=== PATIENT | male | born 1935 | race Caucasian/White ===

== ENCOUNTER 2017-05-05 15:00 | Inpatient (IN) | payer OTHER, MEDICARE ==
[~2017-05-05] VITALS: Ht 176.5 cm; Wt 115.7 kg
--- NOTE | 2017-05-05 15:07 | ED GENERAL ADULT ---
History of Present Illness General Chief Complaint: General Adult Stated Complaint: GEN WEAKNESS Source: patient, family Exam Limitations: no limitations Vital Signs & Intake/Output Vital Signs & Intake/Output Vital Signs Date Time Temp Pulse Resp B/P B/P Pulse O2 O2 Flow FiO2 Mean Ox Delivery Rate 05/05 1617 102.7 05/05 1609 72 20 160/66 97 Room Air 05/05 1559 97 Room Air 05/05 1513 170/72 05/05 1501 98.2 78 20 189/82 97 Room Air Allergies Coded Allergies: Penicillins (Severe, ANAPHYLAXIS 05/05/17) basil (Severe, SHUTS SYSYEM DOWN 05/05/17) bee venom protein (honey bee) (Severe, ANAPHYLAXIS 05/05/17) diphenhydramine (Severe, ANAPHYLAXIS 05/05/17) metoprolol (From TOPROL XL) (Severe, BRADYCARDIA 05/05/17) amlodipine (From NORVASC) (Intermediate, FACE FLUSHED 05/05/17) losartan (From COZAAR) (Intermediate, BRADYCARDIA 05/05/17) hydrochlorothiazide (From HYZAAR) (Mild, NONE 05/05/17) REPORTS THAT IT DOESNT WORK ANYMORE Uncoded Allergies: BEE STINGS (Severe, ANAPHYLAXIS 05/05/17) CLASS: 48:00 - ANTITUSS EXPECTORANT MUCO LYTI () CLASS: 4:00 - ANTIHISTAMINE DRUGS () Reconcile Medications Chlorthalidone (Unknown Strength) TABLET (Unknown Dose) HEART HEALTH ( Reported) Clopidogrel Bisulfate (Plavix) 75 MG TABLET 1 TAB PO DAILY BLOOD THINNER ( Reported) Glipizide (Glipizide ER) 2.5 MG TAB.ER.24 1 TAB PO DAILY DIABETES (Reported) Irbesartan (Avapro) (Unknown Strength) TABLET (Unknown Dose) HEART HEALTH ( Reported) Metformin HCl (Metformin HCl ER) (Unknown Strength) TAB.ER.24 (Unknown Dose) PO DAILY DIABETES (Reported) Triage Nurses Notes Reviewed? yes HPI: Patient presents with increasing weakness over the past few weeks however it acutely got worse today where he could not even transfer from his bed to a chair. The weakness is diffuse. He does not notice it on 1 side versus the other. Patient recently changed his blood pressure medication to Norvasc. His stop the Norvasc this morning and put him back on his original blood pressure medication. Patient is due to have a cardiac pacemaker placed next month. Patient denies any chest pain or shortness of breath. There is no orthopnea. Positive anorexia but no nausea or vomiting. No fevers or chills. No coughing. Past History Travel History Traveled to [place] past 21 day No Medical History Any Pertinent Medical History? see below for history Cardiovascular: hypertension, hyperlipidemia Surgical History Surgical History: non-contributory Psychosocial History Tobacco Use: Never used ETOH Use: denies use Illicit Drug Use: denies illicit drug use Family History Hx Contributory? No Review of Systems Review of Systems Constitutional: Reports: see HPI, weakness. EENTM: Reports: no symptoms. Respiratory: Reports: no symptoms. Cardiovascular: Reports: no symptoms. GI: Reports: no symptoms. Genitourinary: Reports: no symptoms. Musculoskeletal: Reports: no symptoms. Skin: Reports: no symptoms. Neurological/Psychological: Reports: no symptoms. Hematologic/Endocrine: Reports: no symptoms. Immunologic/Allergic: Reports: no symptoms. All Other Systems: Reviewed and Negative Physical Exam Physical Exam General Appearance: well developed/nourished, alert, awake, anxious, moderate distress Head: atraumatic, normal appearance Eyes: Bilateral: PERRL, EOMI. Ears, Nose, Throat: normal pharynx, normal ENT inspection, hearing grossly normal Neck: normal inspection, supple, full range of motion Respiratory: normal breath sounds, chest non-tender, no respiratory distress, lungs clear Cardiovascular: regular rate/rhythm, normal peripheral pulses Gastrointestinal: normal bowel sounds, soft, non-tender, no organomegaly Back: normal inspection, normal range of motion Extremities: normal capillary refill, pedal edema Neurologic/Psych: no motor/sensory deficits, awake, alert, oriented x 3, normal mood/affect Skin: intact, normal color, warm/dry Lymphatic: no anterior cervical jose enrique Core Measures ACS in differential dx? No CVA/TIA Diagnosis: No Severe Sepsis Present: No Septic Shock Present: No Progress Differential Diagnoses I considered the following diagnoses in my evaluation of the patient: [AMI, ELECTROLYTE ABNORMALITY, UTI] Plan of Care: Orders Procedure Date/time Status Admit to inpatient 05/[address] CHEST W IV CONTRAST 05/05 1630 Active BLOOD CULTURE 05/05 1618 Active Telemetry/Core Placer 05/05 1507 Active URINALYSIS 05/05 1507 Active TROPONIN LEVEL 05/05 1507 Complete COMPREHENSIVE METABOLIC PANEL 05/05 1507 Complete CBC WITHOUT DIFFERENTIAL 05/05 1507 Complete EKG 05/05 1503 Active Current Medications Sig/Thomas Start time Last Medication Dose Stop Time Status Admin Acetaminophen 1,000 MG ONCE ONE 05/05 1630 AC (Ofirmev) 05/05 1644 N/A 1 UNIT (No Carrier) Clindamycin 600 MG ONCE ONE 05/05 1630 UNVr (Cleocin) 05/05 1659 Dextrose/Water 50 ML (D5W) Laboratory Tests 05/05/17 1515: Anion Gap 10, Estimated GFR 49 L, BUN/Creatinine Ratio 17.1, Glucose 203 H, Calcium 8.7, Total Bilirubin 1.8 H, AST 21, ALT 27, Alkaline Phosphatase 59, Troponin I 0.02, Total Protein 5.6 L, Albumin 3.7, Globulin 1.9, Albumin/ Globulin Ratio 1.9, CBC w Diff NO MAN DIFF REQ, RBC 3.35 L, MCV 98.3 H, MCH 33.1 H, RDW 18.2 H, MPV 8.0, Gran % 75.4 H, Lymphocytes % 11.2 L, Monocytes % 12.3 H, Eosinophils % 0.9, Basophils % 0.2, Absolute Granulocytes 7.3 H, Absolute Lymphocytes 1.1 L, Absolute Monocytes 1.2 H, Absolute Eosinophils 0.1 , Absolute Basophils 0, PUBS MCHC 33.7 Microbiology 05/05 1618 BLOOD: Blood Culture - ORD 05/05 161 BLOOD: Blood Culture - ORD Diagnostic Imaging: Viewed by Me: Radiology Read. Discussed w/RAD: Radiology Read. CXR Impression: PATIENT: MARTINEZ SUMNER III PRESENT AGE: 81 PATIENT ACCOUNT NO: [id number] : 37 LOCATION: [facility] ORDERING PHYSICIAN: RICK ROJAS MD SERVICE DATE: 05/05/17 EXAM TYPE: RAD - XRY-PORTABLE CHEST XRAY EXAMINATION: XR PORTABLE CHEST CLINICAL INFORMATION: Pneumonia, shortness of breath COMPARISON: 03/22/2014 CT scan TECHNIQUE: Portable frontal view of the chest was obtained. FINDINGS: There is opacity in the lower half of the left hemithorax with obscuration of the left cardiac and left diaphragmatic border, representing lingular and left lower lobe pathology. There is also opacity in the lateral aspect of the right hemithorax, adjacent to the right third and fourth rib. The right costophrenic angle is clear. No pneumothorax. IMPRESSION: Left lower lobe and lingular opacity with obscuration of the left cardiac and left diaphragmatic border and left costophrenic angle. Right upper lobe pulmonary opacity. Consider further chest CT scan evaluation if clinically indicated. DICTATED BY: REINA ORDONEZ MD DATE/TIME DICTATED:1548 DOCTOR OF DENTAL SURGERY:ARGELIA DATE/TIME TRANSCRIBED:05/05/171548 CONFIDENTIAL, DO NOT COPY WITHOUT APPROPRIATE AUTHORIZATION. <Electronically signed in Other Vendor System> SIGNED BY: REINA ORDONEZ MD 05/05/17 0365 Initial ED EKG: NSR, nonspecific ST T wave chg, NO OLD TO COMPARE Departure Departure Disposition: HOME OR SELF CARE Condition: Stable Clinical Impression Primary Impression: Pneumonia Referrals: IDANIA CONROY,Nicole XIAO (PCP/Family) Departure Forms: Customer Survey General Discharge Information Admission Note Spoke With: JOCELIN CONROY,RAMY Whyte Documentation of Exam: Documentation of any treatments & extenuating circumstances including Concerns Regarding Discharge (functional status, medication knowledge or non-compliance, living conditions, etc.) that warrant an admission rather than observation: [IV antibiotics, IV fluids, follow-up CT scan PT evaluation. Patient required an assist of 3 to stand from the wheelchair and pivot in a cherokee to the bed.] Critical Care Note Critical Care Note Critical Care Time: non-applicable
--- NOTE | 2017-05-05 15:18 | NUR ---
LABS SENT (BLUE,SST,LAV,OTERO)
[2017-05-05 15:30] LABS: ABSOLUTE BASOPHIL COUNT 0 /CUMM (0.0-0.2); ABSOLUTE EOSINOPHIL COUNT 0.1 /CUMM (0.0-0.7); ABSOLUTE GRANULOCYTE CT 7.3 /CUMM (1.4-6.5); ABSOLUTE LYMPH COUNT 1.1 /CUMM (1.2-3.4); ABSOLUTE MONOCYTE COUNT 1.2 /CUMM (0.10-0.60); BASOPHIL % 0.2 % (0.0-2.0); EOSINOPHIL % 0.9 % (0-5); GRANULOCYTE % 75.4 % (42.2-75.2); HEMATOCRIT 32.9 % (42-52); MEAN CORPUSCULAR HGB 33.1 PG (27.0-31.0); MEAN CORPUSCULAR HGB CONC 33.7 G/DL (33.0-37.0); MEAN CORPUSCULAR VOLUME 98.3 FL (80.0-94.0); PLATELET COUNT 146 /CUMM (130-400); RBC DISTRIBUTION WIDTH 18.2 % (11.5-14.5); RED BLOOD CELL CT 3.35 /CUMM (4.70-6.10); WHITE BLOOD CELL COUNT 9.7 /CUMM (4.8-10.8)
--- NOTE | 2017-05-05 15:33 | NUR ---
PT ARRIVED BY CAR WITH C/O WEAKNESS. REPORTS HAVING TO GET A PACEMAKER PLACED IN A FEW WEEKS FOR BRADYCARDIA. PT A+OX3, MAEX4, UNSTEADY ON FEET WITH TRANSFERRING FROM WC TO BED, ASSIST X2. PT PLACED ON MONITOR, DR ROJAS TO ROOM FOR EVAL. SKIN COLOR NORMAL. FACE A LITTLE FLUSHED, RESP NORMAL.
[2017-05-05] MEDS ORDERED: AVAPRO75 M1 (15:49)
[2017-05-05] MEDS ORDERED: PLAVIX75 M1 PO (15:54)
--- NOTE | 2017-05-05 15:56 | RADIOLOGY REPORT ---
EXAMINATION: XR PORTABLE CHEST CLINICAL INFORMATION: Pneumonia, shortness of breath COMPARISON: 03/22/2014 CT scan TECHNIQUE: Portable frontal view of the chest was obtained. FINDINGS: There is opacity in the lower half of the left hemithorax with obscuration of the left cardiac and left diaphragmatic border, representing lingular and left lower lobe pathology. There is also opacity in the lateral aspect of the right hemithorax, adjacent to the right third and fourth rib. The right costophrenic angle is clear. No pneumothorax. IMPRESSION: Left lower lobe and lingular opacity with obscuration of the left cardiac and left diaphragmatic border and left costophrenic angle. Right upper lobe pulmonary opacity. Consider further chest CT scan evaluation if clinically indicated.
[2017-05-05] MEDS ORDERED: METFORMIN HCL500 M2 PO (15:58)
[2017-05-05] MEDS ORDERED: GLIPIZIDE ER2.5 M1 PO (15:58)
--- NOTE | 2017-05-05 16:46 | NUR ---
URINE TRIO SENT
--- NOTE | 2017-05-05 16:47 | NUR ---
BLOOD CULTURE #2 SENT
--- NOTE | 2017-05-05 16:50 | History & Physical ---
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 Pt states he has had progressive weakness over the past week. Pt states he believes the weakness was caused by a new medication that was started (Norvasc) over 1 month ago. The medication was recently stopped by sap sd analyst. Pt's family state that he has had decreased appetite over the past week. Pt denies dizziness, lightheadedness, chest pain or SOB. Pt states he does not walk much because of leg pain. Pt denies lower extremity swelling or orthopnea. Pt is diabetic on metformin and glypizide. Pt checks is blood glucose at home, range has been: 115-130. Denies hypoglycemic episodes. Pt is being followed by Dr. Reyes (floor refinisher). Pt states he lives in [place] for part of the year and comes to [place] for a few months to see his physicians. Pt states he does not spend much time outdoors and has not had tick bites or other insect bites. Pt denies headache, visual changes , n/v, fever/chills. Denies abdominal pain, diarrhea/constipation, or dysuria. Pt is currently seeing Dr. York (cardiology) and Dr. Khan ( trolley car operator) who is placing pacemaker. Pt is seen by Dr. Sousa ( pulmonology) and was seen by Dr. Turner (vascular) for stent placement. Allergies/Medications Allergies: Coded Allergies: Penicillins (Severe, ANAPHYLAXIS 05/05/17) basil (Severe, SHUTS SYSYEM DOWN 05/05/17) bee venom protein (honey bee) (Severe, ANAPHYLAXIS 05/05/17) diphenhydramine (Severe, ANAPHYLAXIS 05/05/17) metoprolol (From TOPROL XL) (Severe, BRADYCARDIA 05/05/17) amlodipine (From NORVASC) (Intermediate, FACE FLUSHED 05/05/17) losartan (From COZAAR) (Intermediate, BRADYCARDIA 05/05/17) hydrochlorothiazide (From HYZAAR) (Mild, NONE 05/05/17) REPORTS THAT IT DOESNT WORK ANYMORE Uncoded Allergies: BEE STINGS (Severe, ANAPHYLAXIS 05/05/17) CLASS: 48:00 - ANTITUSS EXPECTORANT MUCO LYTI () CLASS: 4:00 - ANTIHISTAMINE DRUGS () Home Med list Aspirin (Aspirin*) 81 MG TAB.CHEW 1 TAB PO DAILY HEART (Reported) Chlorthalidone 25 MG TABLET 0.5 TAB PO DAILY HYPERTENSION (Reported) Clopidogrel Bisulfate (Plavix) 75 MG TABLET 1 TAB PO DAILY BLOOD THINNER ( Reported) Famotidine 20 MG TABLET 20 MG PO DAILY gerd . Glimepiride 1 MG TABLET 1 TAB PO SEE ADMIN CRITERIA DIABETES (Reported) TAKES 2 AND 1/2 PILL AM TAKES 2 AND 1/2 PILL BEDTIME Irbesartan 300 MG TABLET 1 TAB PO DAILY HYPERTENSION (Reported) Levofloxacin (Levaquin) 500 MG TABLET 500 MG PO Q24H pneumonia . Metformin HCl 500 MG TABLET 2 TAB PO AT BEDTIME DM (Reported) Metformin HCl 500 MG TABLET 500 MG PO DAILY DM (Reported) Past History Travel History Traveled to [place] past 21 day No Medical History Neurological: CVA Cardiovascular: CAD, hypertension, myocardial infarction Respiratory: obstructive sleep apnea Musculoskeletal: RESTLESS LEG SYNDROME Endocrine: PRE DIABETIC Surgical History Surgical History: non-contributory Past Family/Social History Psychosocial History Smoking Status: Former Smoker (stopped 30 years ago) ETOH Use: denies use Illicit Drug Use: denies illicit drug use Review of Systems Review of Systems Constitutional: Reports: see HPI, fever (temp: 100), weakness. Denies: chills, unexplained weight loss. Cardiovascular: Denies: chest pain, edema, orthopena, syncope. Respiratory: Denies: cough, orthopnea. GI: Denies: abdominal pain, nausea, vomiting. Musculoskeletal: Denies: no symptoms. Skin: Reports: erythema (L buttock). Exam & Diagnostic Data Last 24 Hrs of Vital Signs/I&O Vital Signs Date Time Temp Pulse Resp B/P B/P Pulse O2 O2 Flow FiO2 Mean Ox Delivery Rate 05/05 2007 Room Air 05/05 1955 99.1 55 18 142/60 96 Room Air 05/05 1741 100.2 05/05 1739 100.3 05/05 1642 102.7 05/05 1617 102.7 05/05 1609 72 20 160/66 97 Room Air 05/05 1559 97 Room Air 05/05 1513 170/72 07 1501 98.2 78 20 189/82 97 Room Air Intake & Output 05/05 1600 05/05 0800 07 0000 Intake Total 1000 Output Total Balance 1000 Intake, IV 1000 Patient 260 lb Weight Weight Estimated Measurement Method Physical Exam General Appearance Alert, Cooperative, No Acute Distress Skin No Breakdown, No Significant Lesion, mild erythema on left buttock HEENT Atraumatic, dry mucosal membranes Neck No JVD Cardiovascular Regular Rate, Normal S1, Normal S2 Lungs Clear to Auscultation, Normal Air Movement Abdomen Normal Bowel Sounds, Soft, No Tenderness Neurological Normal Speech Assessment/Plan Assessment: 81 y/o male with PMH of aNolafib (20 years prior), TN, CAD s/p 5 stents, aortioiliac stent, tachybrady arythmia scheduled for June 04 2017, stroke with no permanent neurologic complications, BINU on CPAP and HTN presents to ED with weakness. In ED: - patient was given IVF bolus, clindamycin 600mg IV and IV tylenol - EKG: NSR, HR: 84, normal axis, no ST changes, QTc: 418, KY: 188. - CXR: Left lower lobe and lingular opacity with obscuration of the left cardiac and left diaphragmatic border and left costophrenic angle. Right upper lobe pulmonary opacity - CT of Chest: RUL airspace disease - possible pneumonia, mild cardiomegaly - Pt's Tmax: 102.7 in the ED. Pt had fingerstick glucose Pt admitted to tele for management of the followin. Generalized weakness possibly 2/2 pneumonia, anemia, dehydration, medications. Pt's generalized weakness can most likely be attributed to pneumonia. Pt has been febrile in the ED with both CXR and CT of Chest showing right upper lobe airspace disease indicative of pneumonia. Althought patient has multiple cardiac risk factors including tachybrady arrhythmias pt denied syncopal episodes, chest pain or palpitations and a cardiac etiology for pt's current weakness is less likely. However telemetry is warranted due to pt's tachybrady arrhythmia with impending pacemaker placement on June 04, 2017. Pt is prediabetic and is on an oral hypoglycemia (glipizide) however has been monitoring BG at home (115 to 130) and today in the ED was 217 so hypoglycemia can be r/o as possible etiology. Pt has had multiple strokes in the past however no permanent neurological sequelae and this current admission revealed no focal neurologic findings therefore neurologic causes are also less likely. Pt has anemia (H/H: 11.1/32) which could contribute to progressive weaknes. Pt also was placed on Norvasc prior to the start of symptoms, and which from the literature has shown to cause weakness but is associated with musculoskeletal pains of which the patient denies. However, pt has stopped the medication a few days priors to admission. - started on levofloxacin 500mg q48 hours (renally adjusted) - f/u lower respiratory cultures - f/u urinary antigen for strep pneumo/legionella - f/u blood cultures - physical therapy evaluation pending - maintained on fall precautions 2. Macrocytic Anemia: Pt has a low H/H and high MCV. Anemia is most likely secondary to poor oral intake possible folate deficiency. B12 deficiency less likely due to lack of neurologic symptoms. Alcohol related anemia unlikely as pt states he has had 2 drinks in past 5 years. Hypothyroid related anemia is possible as hypothyroidism can also cause generalized weakness however pt does not appear to have any other signs/symptoms. - repeat CBC in AM - consider TSH/T4 3. Tachybradycardia arrhythmia Patient is scheduled to get a pacemaker on June 04, 2017 4. BINU on CPAP - Continuel CPAP at night 5. DM On glimepiride and metformin - hold oral meds - start on insulin SS 6. Hypertension Home meds: irbesartan, chlorothalidone and Norvasc (which he stopped due to weakness/flushing) 7. CAD s/p 5 stents, s/p aortoiliac stent, multiple strokes in the past - will continue home meds: aspirin 81 mg daily and plavix 75 mg daily - remain off beta gaurav for now due to bradycardia DVT prophylaxis: Heparin SQ Diet: DASH, regular consistency Code: DNR/DNI As Ranked By This Provider Problem List: 1. Pneumonia Core Measures/Miscellaneous Acute Coronary Syndrome ACS Diagnosis: No Cerebrovascular Accident CVA/TIA Diagnosis: No Congestive Heart Failure CHF Diagnosis: No VTE (View Protocol) VTE Risk Factors: Age > 40, CHF or Resp failure, Obesity No [facility] VTE prophylaxis d/t: No contraindications No VTE Pharm Prophylaxis d/t: No contraindications VTE Diagnosis: No VTE Type: NONE VTE Confirmed by (Test): NONE Sepsis (View Protocol) Severe Sepsis Present: No Septic Shock Septic Shock Present: No Miscellaneous Documentation Attending Case Discussed With: RAMY MONREAL MD Primary Care Physician: Nicole EMERSON MD Patient sees these Specialists Dr. York (cardiology) Dr. Khan (trolley car operator) placing pacemaker in June. Dr. Sousa (pulmonology) Dr. Turner (vascular) Dr. Reyes (floor refinisher) Level of Patient Care: Telemetry LIZETT GARVEY 05/05/17 1650: Resident Review Statement Resident Statement: examined this patient, discussed with automotive internet sales consultant, agreed with automotive internet sales consultant, discussed with family, reviewed EMR data (avail), discussed with nursing , discussed with case mgmt, reviewed images, amended to note Other Findings: 81-year-old male with a past medical history of xyc-arogcvz-kjroghcdo diabetes mellitus, tachybradyarrythmia with plan for PM in Jun 2017, CAD s/p PCIX5 on DAPT, PVD s/p aortoiliac stent in 2014, stroke in 1998 (with minimal residual left sided neuro defcit), BINU on nocturnal CPAP, hypertension, presented to the ER with chief complaints of increasing weakness and difficulty ambulating. Of note patient lives in [place] and visits [place] every 4 months or so. According to him there was a recent change in his medications by Dr. York and he was started on Norvasc about. He states since then he has not been feeling well and has been feeling very weak. He endorses generalized weakness going on for the past 1 month now. He said that the weakness progressed to the point where he was unable to ambulate this morning which is why he presented to the ER. He also endorses fever to 100F last night. Denies any cough, history of tick bite, weight loss, urinary complaints. Denies any orthopnea or PND, shortness of breath, chest discomfort, abdominal pain, nausea, vomiting. He does however endorses a rash on his left buttock area. Of note he is not an insulin for his diabetes and his blood sugars for the most part range between 1: 15 to 135. The patient has an extensive cardiac history he's had 5 stents the last 2 being about 6 years ago. He also follows up with Dr. Baib was been monitoring him for questionable atrial fibrillation with recent episodes of bradycardia for which there was plan for for pacemaker in June 2017. He follows up with who is his primary sap sd analyst, Dr. Kearney in [place] who placed stents, Daniel Sousa MD was his independent trader, Dr. Turner who is his vascular surgeon in [place] and Dr. Reyes who is his floor refinisher in [place]. Patient is a former smoker who quit about 30 years ago. He had smoked half a pack a day for almost 10 years before quitting. He denies any passive smoking. Vitals at the time of admission blood pressure 160/66, respiratory rate of 20, pulse 72, MAXIMUM TEMPERATURE of 102.7 saturating 97% on room air. On physical exam he is morbidly obese, in NAD, sitting comfortably in bed. HEENT revealed PERRLA, dry mucous membranes. Examination of neck did not reveal LAD, and JVD was not elevated. cardiovascular exam revealed normal S1, S2, and a grade II/ systolic murmur at RSB. Respiratory exam revealed chest clear to ausculation bilaterally. Abdomnal exam was benign, with abdomen soft, nontender, non-distended with normal bowel sounds in all four quadrants. Examinatiioon of lower extremities did not reveal any edema. Neuro exam revealed strength 4/5 in all 4 extermeties. Labs pertinent for normal white blood cell count of 9700, macrocytic anemia with an H&H of 11.1/32.9, platelet count of 146,000. Serum chemistries revealed hyponatremia with a sodium of 134, potassium of 4.1, bicarbonate 24, normal anion gap of 10, BUN of 24 with a creatinine elevated to 1.4. Serum glucose elevated 203. Total bili elevated to 1.8. AST/ALT within normal limits at 21/ 27, normal alkaline phosphatase of 50. First set of troponin negative 0.02. UA was pending. Chest x-ray showed left lower lobe and lingular opacity with obscuration of the left cardiac and left diaphragmatic border and left costophrenic angle. There is right upper lobe pulmonary opacity. EKG revealed: Normal sinus rhythm with a heart rate of 84, normal axis, poor progression with no ST-T changes and a QTC of 418 with a KY of 188. In the ER he received a bolus of normal saline, clindamycin 600 mg IV 1 and IV Tylenol thousand milligrams 1. Assessment and plan Admit to Tele given tachybrady arrythmias #Generalized weakness and physical deconditioning Most likely secondary to pneumonia which is community-acquired versus HCAP as patient has not been in the hospital recently. We'll start him on levofloxacin 750 mg every 48 hours renally adjusted for community-acquired pneumonia given that he is allergic to penicillins which gave him anaphylaxis. Follow-up chest CT Follow-up lower respiratory cultures Follow-up urinary antigen for strep pneumo and Legionella Follow-up blood cultures 2 PT eval in a.m. Maintained on fall precautions #BINU on CPAP Continue on nocturnal CPAP. #Yrv-pztdfcy-tkxdtmato diabetes mellitus Apparently patient is on glimepiride and metformin We'll hold while he is in the hospital and place him on NovoLog sliding scale Follow-up hemoglobin A1c Accu-Cheks 3 times a day at bedtime #Hypertension Currently patient is on irbesartan, chlorothalidone and was on Norvasc which he has not been taking because of flushing episodes #Coronary artery disease status post stent placement and history of stroke Continue on aspirin 81 mg daily and Plavix 75 mg daily Avoid beta blockers given bradycardia. #Tachybradycardia arrhythmia Patient is scheduled to get a pacemaker in June 2017. With Dr. Cardenas. Please let him know that the patient is admitted in the hospital. DVT prophylaxis Heparin 5000 international units 3 times a day subcutaneous Diet Consistent carb 2 CODE STATUS DNR/DNI JOCELINMILINDMIKE 05/11/17 1107: Attending MD Review Statement Attending Statement Attending MD Statement: examined this patient, discuss w/resident/PA/TIP STRETCHER, agreed w/resident/PA/TIP STRETCHER, reviewed EMR data (avail), discussed with nursing Attending Assessment/Plan: Please see my separate attending note for more details.
--- NOTE | 2017-05-05 17:19 | CT SCAN REPORT ---
EXAMINATION: CT CHEST WITHOUT CONTRAST CLINICAL INFORMATION: Pneumonia, cough COMPARISON: Chest x-ray the same day and 03/22/[address] scan TECHNIQUE: Multidetector volumetric CT imaging of the chest was done. Axial MIP volume rendering provided. Sagittal and coronal reformatted images were obtained. DLP: 476.64 mGy-cm FINDINGS: LUNGS: There is an area of pulmonary opacity with air alveologram in the lateral aspect of the right upper lobe. This can represent pneumonia. This correlates with the x-ray finding of the same day. There is no pulmonary opacity in the left lower lobe or the lingula to correlate with the opacity seen in the lower half of the left hemithorax on the chest x-ray from the same day. There are areas of mild traction bronchiectasis in anterior bilateral upper lobes. There are also some subpleural small cystic changes, would represent changes of mild interstitial disease. MEDIASTINUM: There is mild cardiomegaly. No pericardial effusion. Atherosclerotic calcifications of the coronary arteries and the thoracic aorta noted. No aneurysmal dilatation. The trachea and shelley are unremarkable. There are mildly enlarged right paratracheal lymph node, up to 10 mm in transverse diameter. Evaluation for hilar adenopathy is somehow limited due to lack of intravenous contrast. PLEURA: There is no pleural effusion. No pneumothorax. AXILLA: No lymphadenopathy. UPPER ABDOMEN: Limited images of upper abdomen demonstrate prior cholecystectomy. A small hiatal hernia present. Partial visualization of abdominal aortic stent. OSSEOUS STRUCTURES: There are bridging osteophytes at multiple thoracic levels, predominantly on the right side. No aggressive bony lesions or acute bone fractures. IMPRESSION: Right upper lobe pulmonary airspace disease and air alveologram can represent pneumonia. Mild mediastinal adenopathy can be reactive. Findings of mild interstitial lung disease with subpleural small cystic formation and small area of mild traction bronchiectasis. Mild cardiomegaly. Atherosclerosis and coronary artery disease.
--- NOTE | 2017-05-05 17:34 | NUR ---
REPORT CALLED TO PAYAL CARRASQUILLO
[2017-05-05] MEDS ORDERED: ASPIRIN81 M4 PO (17:49)
--- NOTE | 2017-05-05 17:53 | NUR ---
PER ADMITTING MD PT TO GO TO TELE FLOOR. PAYAL CARRASQUILLO UPDATED.
--- NOTE | 2017-05-05 17:54 | NUR ---
TRANSPORT AWARE OF FLOOR CHANGE
--- NOTE | 2017-05-05 18:14 | Admission Certification ---
Admission Certification Certification Statement - As attending physician, I certify that at the time of - admission, based on clinical presentation, severity of - symptoms, need for further diagnostic testing and - therapeutic interventions, and risk of adverse outcomes - without in-hospital treatment, in my clinical assessment, - this patient requires an acute hospital stay for a minimum - of two nights or longer. I have also considered psychsocial - factors such as support system, advanced age, financial - issues, cognitive issues, and failed out-patient treatments, - past re-admission history, safety of patient, and lack of - compliance as applicable. Specific rationale supporting this admission is: pneumonia with fever and weakness.
--- NOTE | 2017-05-05 18:17 | PN- Att Addend ---
Attending MD Review Statement Attending Statement Attending MD Statement: examined this patient, discuss w/resident/PA/CLASSROOM TEACHER, agreed w/resident/PA/CLASSROOM TEACHER, discussed with family, reviewed EMR data (avail), discussed w/ nursing Attending Assessment/Plan: Laboratory Tests 05/05/17 1640: Urinalysis LIGHT H, Urine Color YEL, Urine Clarity CLEAR, Urine pH 6.0, Ur Specific [place] 1.020, Urine Protein 30 H, Urine Ketones NEG, Urine Nitrite NEG, Urine Bilirubin NEG, Urine Urobilinogen 0.2, Ur Leukocyte Esterase NEG, Ur Microscopic SEDIMENT EXAMINED, Urine RBC RARE, Urine Hemoglobin NEG, Urine Glucose 100 H 05/05/17 1515: Anion Gap 10, Estimated GFR 49 L, BUN/Creatinine Ratio 17.1, Glucose 203 H, Calcium 8.7, Total Bilirubin 1.8 H, AST 21, ALT 27, Alkaline Phosphatase 59, Troponin I 0.02, Total Protein 5.6 L, Albumin 3.7, Globulin 1.9, Albumin/ Globulin Ratio 1.9, CBC w Diff NO MAN DIFF REQ, RBC 3.35 L, MCV 98.3 H, MCH 33.1 H, RDW 18.2 H, MPV 8.0, Gran % 75.4 H, Lymphocytes % 11.2 L, Monocytes % 12.3 H, Eosinophils % 0.9, Basophils % 0.2, Absolute Granulocytes 7.3 H, Absolute Lymphocytes 1.1 L, Absolute Monocytes 1.2 H, Absolute Eosinophils 0.1 , Absolute Basophils 0, PUBS MCHC 33.7 Vital Signs Date Time Temp Pulse Resp B/P B/P Pulse O2 O2 Flow FiO2 Mean Ox Delivery Rate 05/05 1741 100.2 05/05 1739 100.3 05/05 1642 102.7 05/05 1617 102.7 05/05 1609 72 20 160/66 97 Room Air 05/05 1559 97 Room Air 05/05 1513 170/72 05/05 1501 98.2 78 20 189/82 97 Room Air 81 yr old male with pmh of cad s/p stents, edgardo on cpap, htn, dm, cva, pad s/p aortoiliac stent presented with fever of one day and gen weakness over the last few days. Pt had fever of 102 in ER and CXR and CT chest consistent with pneumonia. Will treat for CAP - pt allergic to penicillin with severe reaction so will treat with levofloxacin. Will review the EKG to look at QTc interval . Pt also has h/o tachy migdalia syndrome and is planned for PPM placement on Jun [address] Cardenas.
[2017-05-05] MEDS ORDERED: METFORMIN HCL500 M3 PO ×2 (18:42→20:05)
--- NOTE | 2017-05-05 18:43 | NUR ---
REPORT CALLED TO ROSE CARRASQUILLO
[2017-05-05 19:55] VITALS: BP 142/60
[2017-05-05 22:00] VITALS: BP 150/60
[2017-05-06 06:17] VITALS: BP 132/64
[2017-05-06 08:27] LABS: ABSOLUTE BASOPHIL COUNT 0 /CUMM (0.0-0.2); ABSOLUTE EOSINOPHIL COUNT 0.1 /CUMM (0.0-0.7); ABSOLUTE GRANULOCYTE CT 6.5 /CUMM (1.4-6.5); ABSOLUTE LYMPH COUNT 1.1 /CUMM (1.2-3.4); ABSOLUTE MONOCYTE COUNT 1.2 /CUMM (0.10-0.60); BASOPHIL % 0.2 % (0.0-2.0); EOSINOPHIL % 0.7 % (0-5); GRANULOCYTE % 73.6 % (42.2-75.2); HEMATOCRIT 30.6 % (42-52); MEAN CORPUSCULAR HGB 33.3 PG (27.0-31.0); MEAN CORPUSCULAR HGB CONC 33.9 G/DL (33.0-37.0); MEAN CORPUSCULAR VOLUME 98.1 FL (80.0-94.0); MEAN PLATELET VOLUME 8.1 FL (7.4-10.4); PLATELET COUNT 137 /CUMM (130-400); RBC DISTRIBUTION WIDTH 18.2 % (11.5-14.5); RED BLOOD CELL CT 3.12 /CUMM (4.70-6.10); WHITE BLOOD CELL COUNT 8.8 /CUMM (4.8-10.8)
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
[2017-05-06] MEDS ORDERED: IRBESARTAN300 M1 PO (13:22)
[2017-05-06] MEDS ORDERED: GLIMEPIRIDE1 M1 PO (13:22)
[2017-05-06] MEDS ORDERED: CHLORTHALIDONE25 M1 PO (13:23)
[2017-05-06] MEDS ORDERED: FAMOTIDINE20 M1 PO (14:30)
[2017-05-06] MEDS ORDERED: LEVAQUIN500 M1 PO (14:30)
--- NOTE | 2017-05-06 14:35 | Patient Discharge Instructions ---
Discharge Instructions General Discharge Information You were seen/treated for: Generalized weakness Fever Right upper lobe pneumonia Acute kidney injury secondary to dehydration You had these procedures: None Special Instructions: Please follow-up with primary care physician in one week after discharge. Please follow-up with the sane nurse Dr. Sousa, within 1-2 weeks after discharge. Referral was provided. Please follow-up with Dr. Cardenas for pacemaker placement in June for tachybradycardia syndrome. Diet Continue normal diet: Yes Activity Full Activity/No Limits: Yes Acute Coronary Syndrome Inclusion Criteria At DC or during hospital stay patient has or had the following: ACS DIAGNOSIS No Discharge Core Measures Meds if any: Prescribed or Continued at Discharge Meds if any: NOT Prescribed or Continued at Discharge Congestive Heart Failure Inclusion Criteria At DC or during hospital stay patient has or had the following: CHF DIAGNOSIS No Discharge Core Measures Meds if any: Prescribed or Continued at Discharge Meds if any: NOT Prescribed or Continued at Discharge Cerebrovascular accident Inclusion Criteria At DC or during hospital stay patient has or had the following: CVA/TIA Diagnosis No Discharge Core Measures Meds if any: Prescribed or Continued at Discharge Meds if any: NOT Prescribed or Continued at Discharge Venous thromboembolism Inclusion Criteria VTE Diagnosis No VTE Type NONE VTE Confirmed by (Test) NONE Discharge Core Measures - Per Current guidelines, there needs to be overlap - treatment for the first 5 days of Warfarin therapy. - If discharged on Warfarin prior to 5 days of - overlap therapy, the patient will need to be - assessed for post discharge needs including - *Post discharge parental anticoagulation - *Warfarin and/or parental anticoagulation education - *Follow up date to check INR post discharge At least 5 days overlap therapy as Inpatient No Meds if any: Prescribed or Continued at Discharge Note: Overlap Therapy is Warfarin and Anticoagulant Meds if any: NOT Prescribed or Continued at Discharge
[2017-05-06 15:40] VITALS: BP 144/62
[2017-05-06 23:18] VITALS: BP 136/70
[2017-05-07 06:56] VITALS: BP 150/70
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
[2017-05-07 07:55] LABS: ABSOLUTE BASOPHIL COUNT 0 /CUMM (0.0-0.2); ABSOLUTE EOSINOPHIL COUNT 0.1 /CUMM (0.0-0.7); ABSOLUTE GRANULOCYTE CT 5.4 /CUMM (1.4-6.5); ABSOLUTE LYMPH COUNT 1.1 /CUMM (1.2-3.4); ABSOLUTE MONOCYTE COUNT 1.2 /CUMM (0.10-0.60); BASOPHIL % 0.4 % (0.0-2.0); EOSINOPHIL % 1.1 % (0-5); GRANULOCYTE % 69.8 % (42.2-75.2); HEMATOCRIT 30.6 % (42-52); MEAN CORPUSCULAR HGB 32.9 PG (27.0-31.0); MEAN CORPUSCULAR HGB CONC 33.4 G/DL (33.0-37.0); MEAN CORPUSCULAR VOLUME 98.7 FL (80.0-94.0); MEAN PLATELET VOLUME 8.3 FL (7.4-10.4); PLATELET COUNT 143 /CUMM (130-400); RBC DISTRIBUTION WIDTH 17.9 % (11.5-14.5); WHITE BLOOD CELL COUNT 7.8 /CUMM (4.8-10.8)
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
[2017-05-07 14:47] VITALS: BP 140/62
--- NOTE | 2017-05-07 15:11 | Cons- Infect Disease ---
General Information and HPI Consulting Request Date of Consult: 05/07/17 Requested By: RAMY MONREAL MD Reason for Consult: Right upper lobe pneumonia Source of Information: patient, family History of Present Illness: This is a 81-year-old man with a history of diabetes, hypertension, coronary artery disease, status post [address], atrial fibrillation, tachybradycardia syndrome, with plans for a pacemaker next month, peripheral vascular disease, status post an aortoiliac stent 2 years prior to admission, status post CVA, COPD, obstructive sleep apnea, maintained on CPAP, admitted on May 05 with one week of increasing weakness, dry cough and shortness of breath on exertion and a more acute onset of undocumented fevers and chills. On admission he was febrile to 102.7. Laboratory data revealed a white blood cell count of 10,000, BUN/creatinine 24 and 1.4, bilirubin 1.8. Urinalysis rare RBCs. Chest x-ray revealed a right upper lobe opacity and a left lower lobe and lingular opacity. CT of the chest revealed right upper lobe pulmonary airspace disease with an air alveologram. He was given a dose of Clindamycin and begun on Levaquin. He was again febrile to 101.9 last night but has been afebrile so far today and feels improved with increased strength and decreased shortness of breath. Allergies/Medications Allergies: Coded Allergies: Penicillins (Severe, ANAPHYLAXIS 05/05/17) basil (Severe, SHUTS SYSYEM DOWN 05/05/17) bee venom protein (honey bee) (Severe, ANAPHYLAXIS 05/05/17) diphenhydramine (Severe, ANAPHYLAXIS 05/05/17) metoprolol (From TOPROL XL) (Severe, BRADYCARDIA 05/05/17) amlodipine (From NORVASC) (Intermediate, FACE FLUSHED 05/05/17) losartan (From COZAAR) (Intermediate, BRADYCARDIA 05/05/17) hydrochlorothiazide (From HYZAAR) (Mild, NONE 05/05/17) REPORTS THAT IT DOESNT WORK ANYMORE Uncoded Allergies: BEE STINGS (Severe, ANAPHYLAXIS 05/05/17) CLASS: 48:00 - ANTITUSS EXPECTORANT MUCO LYTI () CLASS: 4:00 - ANTIHISTAMINE DRUGS () Home Med List: Aspirin (Aspirin*) 81 MG TAB.CHEW 1 TAB PO DAILY HEART (Reported) Chlorthalidone 25 MG TABLET 0.5 TAB PO DAILY HYPERTENSION (Reported) Clopidogrel Bisulfate (Plavix) 75 MG TABLET 1 TAB PO DAILY BLOOD THINNER ( Reported) Famotidine 20 MG TABLET 20 MG PO DAILY gerd Glimepiride 1 MG TABLET 1 TAB PO SEE ADMIN CRITERIA DIABETES (Reported) TAKES 2 AND 1/2 PILL AM TAKES 2 AND 1/2 PILL BEDTIME Irbesartan 300 MG TABLET 1 TAB PO DAILY HYPERTENSION (Reported) Levofloxacin (Levaquin) 500 MG TABLET 500 MG PO Q24H pneumonia Metformin HCl 500 MG TABLET 2 TAB PO AT BEDTIME DM (Reported) Metformin HCl 500 MG TABLET 500 MG PO DAILY DM (Reported) Past History Travel History Traveled to [place] past 21 day No Medical History Blood Transfusion Hx: Yes Neurological: CVA EENT: NONE Cardiovascular: CAD, hypertension, myocardial infarction, tachybradycardia syndrome Respiratory: obstructive sleep apnea Gastrointestinal: pancreatitis Hepatic: NONE Renal: NONE Musculoskeletal: RESTLESS LEG SYNDROME Psychiatric: NONE Endocrine: PRE DIABETIC Blood Disorders: NONE Cancer(s): NONE MANUFACTURING SALES REPRESENTATIVE/Reproductive: NONE History of MRSA: No History of VRE: No History of CDIFF: No Isolation History: Standard Surgical History Surgical History: cholecystectomy, AORTIC STENTS 2015 NECK FUSION, status post surgery for a perforated bile duct in 1998 Family History Relations & Conditions If Any: MOTHER, ; Cause: Cancer of unknown origin. Relation not specified for: *No pertinent family history Psychosocial History Where Do You Live? Home Smoking Status: Former Smoker (stopped 30 years ago) ETOH Use: denies use Illicit Drug Use: denies illicit drug use Review of Systems Review of Systems All Other Systems: Reviewed and Negative Exam & Diagnostic Data Last 24 Hrs of Vital Signs/I&O Vital Signs Date Time Temp Pulse Resp B/P B/P Pulse O2 O2 Flow FiO2 Mean Ox Delivery Rate 05/07 1447 98.9 62 20 140/62 98 Room Air 05/07 0656 98.4 65 20 150/70 95 Room Air 05/07 0010 99.9 05/07 0000 BIPAP 05/06 2318 101.9 67 24 136/70 96 05/06 2237 101.9 05/06 1702 99.5 / 1540 101.4 66 20 144/62 94 Room Air Intake & Output 05/07 1600 05/07 0800 07/06 0000 Intake Total 600 250 120 Output Total 082 245 2203 Balance 200 -650 -1255 Intake, IV 0 Intake, Oral 600 250 120 Number 0 1 Bowel Movements Output, Urine 968 105 4530 Physical Exam Other Physical Findings: He is awake and alert in no acute distress. MAXIMUM TEMPERATURE 101.9. Skin reveals no rash. HEENT exam is negative. Neck is supple with no adenopathy. Lungs are clear. Heart irregular rhythm with no murmur. Abdomen is obese, soft , nontender with positive bowel sounds. Back no CVA tenderness. Extremities no cyanosis, clubbing or edema. Neuro is without focality. Last 24 Hours of Lab Results: Laboratory Tests 05/07 05/07 0640 0100 Chemistry Sodium (137 - 145 mmol/L) 137 Potassium (3.5 - 5.1 mmol/L) 4.3 Chloride (98 - 107 mmol/L) 104 Carbon Dioxide (22 - 30 mmol/L) 25 Anion Gap (5 - 16) 8 BUN (9 - 20 mg/dL) 20 Creatinine (0.7 - 1.2 mg/dL) 1.4 H Estimated GFR (>60 ml/min) 49 L BUN/Creatinine Ratio (7 - 25 %) 14.3 Lactic Acid (0.7 - 2.1 mmol/L) 0.7 Hematology CBC w Diff NO MAN DIFF REQ WBC (4.8 - 10.8 /CUMM) 7.8 RBC (4.70 - 6.10 /CUMM) 3.10 L Hgb (14.0 - 18.0 G/DL) 10.2 L Hct (42 - 52 %) 30.6 L MCV (80.0 - 94.0 FL) 98.7 H MCH (27.0 - 31.0 PG) 32.9 H RDW (11.5 - 14.5 %) 17.9 H Plt Count (130 - 400 /CUMM) 143 MPV (7.4 - 10.4 FL) 8.3 Gran % (42.2 - 75.2 %) 69.8 Lymphocytes % (20.5 - 51.1 %) 13.7 L Monocytes % (1.7 - 9.3 %) 15.0 H Eosinophils % (0 - 5 %) 1.1 Basophils % (0.0 - 2.0 %) 0.4 Absolute Granulocytes (1.4 - 6.5 /CUMM) 5.4 Absolute Lymphocytes (1.2 - 3.4 /CUMM) 1.1 L Absolute Monocytes (0.10 - 0.60 /CUMM) 1.2 H Absolute Eosinophils (0.0 - 0.7 /CUMM) 0.1 Absolute Basophils (0.0 - 0.2 /CUMM) 0 PUBS MCHC (33.0 - 37.0 G/DL) 33.4 Last 24 Hours of Joey Results: Blood cultures May 05 negative Blood cultures May 07 negative Urine strep pneumo antigen and Legionella antigen May 05 negative Diagnostic Data Recent Imaging Findings: Chest x-ray May 05, personally reviewed, reveals a right upper lobe opacity and a left lower lobe and lingular opacity. CT of the chest May 05 revealed right upper lobe pulmonary airspace disease with an air alveologram. Assessment/Plan Assessment/Plan Impression: This is a 81-year-old man with COPD, obstructive sleep apnea, diabetes, atrial fibrillation, coronary artery disease and peripheral vascular disease admitted on May 05 with increasing weakness associated with a dry cough and shortness of breath for 1 week prior to admission and more acute onset of undocumented fevers and chills, found to be febrile with a normal white blood cell count and with a CT of the chest revealing a right upper lobe density. His clinical picture could be consistent with a pneumonia, perhaps atypical, given the dry cough and normal white blood cell count and he does appear to be responding to empiric treatment with Levaquin. He will need a repeat CT scan to ensure clearing of his right upper lobe density as an underlying process, such as a malignancy, or a more chronic pulmonary infection is also possible and, if his symptoms do not resolve, further evaluation for these possibilities may be necessary. Suggestion: 1. Continue Levaquin to complete a 5 to 7 day course of treatment if he continues to improve Consult Acknowledgment - Thank you for your consult request.
--- NOTE | 2017-05-07 16:22 | RADIOLOGY REPORT ---
EXAMINATION: XR CHEST CLINICAL INFORMATION: Persistent cough and fever. COMPARISON: 05/05/2017. TECHNIQUE: 2 views of the chest were obtained. FINDINGS: The cardiomediastinal silhouette is stable appearing with cardiomegaly. Right upper lobe infiltrate and probable pneumonia appears largely unchanged. Patchy opacity in the left side also appears largely unchanged likely partially technical. Included osseous structures appear largely unremarkable. IMPRESSION: Relatively stable appearing chest x-ray.
[2017-05-07 23:50] VITALS: BP 156/80
[2017-05-08 07:15] VITALS: BP 138/60
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
[2017-05-08] MEDS ORDERED: LEVAQUIN500 M1 PO ×2 (07:30→09:19)
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
[2017-05-08] MEDS ORDERED: FAMOTIDINE20 M1 PO (09:19)
--- NOTE | 2017-05-08 10:35 | PN- Pulmonary ---
Subjective HPI/Critical Care Issues: Feels well afebrile Says still woobly on his feet Objective Current Medications: Current Medications Sig/Thomas Start time Last Medication Dose Route Stop Time Status Admin Acetaminophen 650 MG Q6P PRN 05/05 1700 AC 05/06 PO 2237 Acetaminophen 1,000 MG Q6P PRN 05/05 1700 AC 05/06 IV 0158 Aspirin 81 MG DAILY 05/06 1000 AC 05/08 PO 0923 Chlorthalidone 12.5 MG DAILY 05/06 1324 AC 05/08 PO 0923 Clopidogrel Bisulfate 75 MG DAILY 05/06 1000 AC 05/08 PO 0923 Famotidine 20 MG DAILY 05/06 1118 AC 05/08 PO 0923 Heparin Sodium 5,000 UNIT Q8 05/05 2200 AC 05/08 (Porcine) SC 0555 Insulin Aspart 0 TIDAC 05/06 0800 AC 05/08 SC 0855 Irbesartan 300 MG DAILY 05/07 1130 AC 05/08 PO 0924 Levofloxacin 500 MG Q24H 05/05 2200 AC 05/07 PO 2110 Morphine Sulfate 2 MG Q4P PRN 05/05 1700 AC IV Polyethylene Glycol 17 GM DAILY PRN 05/06 1715 AC PO Senna/Docusate Sodium 2 TAB DAILY PRN 05/06 1715 AC PO Sodium Chloride 1,000 ML Q13H 05/07 1500 DC IV 05/08 0359 Vital Signs & I&O Last 24 Hrs of Vitals and I&O: Vital Signs Date Time Temp Pulse Resp B/P B/P Pulse O2 O2 Flow FiO2 Mean Ox Delivery Rate 05/08 0715 97.9 51 18 138/60 95 CPAP 05/08 0000 BIPAP 05/07 2350 98.8 56 20 156/80 97 Room Air 05/07 1844 99.3 05/07 1447 98.9 62 20 140/62 98 Room Air Intake & Output 05/08 1600 05/08 0800 05/08 0000 Intake Total 120 120 Output Total 800 1350 Balance -680 -1230 Intake, Oral 120 120 Output, Urine 800 1350 Laboratory Tests 05/08 05/07 05/07 05/06 0817 0640 0100 1250 Chemistry Sodium (137 - 145 mmol/L) 139 137 Potassium (3.5 - 5.1 mmol/L) 4.5 4.3 Chloride (98 - 107 mmol/L) 104 104 Carbon Dioxide (22 - 30 mmol/L) 26 25 Anion Gap (5 - 16) 9 8 BUN (9 - 20 mg/dL) 23 H 20 Creatinine (0.7 - 1.2 mg/dL) 1.4 H 1.4 H Estimated GFR (>60 ml/min) 49 L 49 L BUN/Creatinine Ratio (7 - 25 %) 16.4 14.3 Lactic Acid (0.7 - 2.1 mmol/L) 0.7 1.1 Hematology CBC w Diff NO MAN DIFF REQ WBC (4.8 - 10.8 /CUMM) 7.8 RBC (4.70 - 6.10 /CUMM) 3.10 L Hgb (14.0 - 18.0 G/DL) 10.2 L Hct (42 - 52 %) 30.6 L MCV (80.0 - 94.0 FL) 98.7 H MCH (27.0 - 31.0 PG) 32.9 H RDW (11.5 - 14.5 %) 17.9 H Plt Count (130 - 400 /CUMM) 143 MPV (7.4 - 10.4 FL) 8.3 Gran % (42.2 - 75.2 %) 69.8 Lymphocytes % (20.5 - 51.1 %) 13.7 L Monocytes % (1.7 - 9.3 %) 15.0 H Eosinophils % (0 - 5 %) 1.1 Basophils % (0.0 - 2.0 %) 0.4 Absolute Granulocytes (1.4 - 6.5 /CUMM) 5.4 Absolute Lymphocytes (1.2 - 3.4 /CUMM) 1.1 L Absolute Monocytes (0.10 - 0.60 /CUMM) 1.2 H Absolute Eosinophils (0.0 - 0.7 /CUMM) 0.1 Absolute Basophils (0.0 - 0.2 /CUMM) 0 PUBS MCHC (33.0 - 37.0 G/DL) 33.4 Microbiology Date/Time Procedure - Status Source Growth 05/07 144 Respiratory Culture - COLB LOWER RESP 05/07 144 Gram Stain - COLB LOWER RESP 05/07 010 Blood Culture - RECD BLOOD 05/07 010 Blood Culture - RECD BLOOD 05/05 1640 Legionella Antigen - COMP URINE ROUT 05/05 1640 Streptococcus pneumoniae Antigen (M - COMP URINE ROUT 05/05 1640 Blood Culture - RES BLOOD 05/05 1630 Blood Culture - RES BLOOD Impression/Plan Impression/Plan Impression/Plan: General Appearance Alert, Cooperative, No Acute Distress Skin No Breakdown, No Significant Lesion, mild erythema on left buttock HEENT Atraumatic, dry mucosal membranes Neck No JVD Cardiovascular Regular Rate, Normal S1, Normal S2 Lungs Clear to Auscultation, Normal Air Movement Abdomen Normal Bowel Sounds, Soft, No Tenderness Neurological Normal Speech CT chest IMPRESSION: Right upper lobe pulmonary airspace disease and air alveologram can represent pneumonia. Mild mediastinal adenopathy can be reactive. Findings of mild interstitial lung disease with subpleural small cystic formation and small area of mild traction bronchiectasis. Mild cardiomegaly. Atherosclerosis and coronary artery disease. Hiatal hernia DICTATED BY: REINA ORDONEZ MD DATE/TIME DICTATED:05/05/171704 IMPRESSION 81-year-old male with a past medical history of [id number] diabetes mellitus, tachybradyarrythmia with plan for PM in Jun 2017, CAD s/p PCIX5 on DAPT, PVD s/p aortoiliac stent in 2014, stroke in 1998 (with minimal residual left sided neuro defcit), BINU on nocturnal CPAP, hypertension, Hiatal hernia, MIld ILD, History of ARDS and prolonged vent in 1998 after sig biliary sepsis, Severe peripheral vascular disease, adrenal adenomas, hepatic hemangioma, previous stroke and AAA surg Now with Upper lobe PNA prob aspiration now afebrile, Pt did have aspiration of swimming pool water as he had an accidental fall into the pool the day prior to admission Sig pcn allergy ILD prob due to chronic gerd from hiatal hernia, with previous history of ards Mild bronchiectasis stable BINU on cpap IHD, Tachbrady syndrome pending pacer Sig pvd and ihd with multiple stents CKD stage 2/3 DM Adrenal adenoma nonfunctioning, hepatic hemangioma, previous stroke stable REC Cont abx for 7-10 days ok to ds po zantac PT eval Will follow next week in the office for follow up ct
--- NOTE | 2017-05-08 12:39 | PN- Infect Dx ---
Subjective Subjective: Afebrile. He feels improved with minimal cough, decreased shortness of breath and increased strength. Objective Last 24 Hrs of Vital Signs/I&O Vital Signs Date Time Temp Pulse Resp B/P B/P Pulse O2 O2 Flow FiO2 Mean Ox Delivery Rate 05/08 0715 97.9 51 18 138/60 95 CPAP 05/08 0000 BIPAP 05/07 2350 98.8 56 20 156/80 97 Room Air 05/07 1844 99.3 05/07 1447 98.9 62 20 140/62 98 Room Air Intake & Output 05/08 1600 05/08 0800 05/08 0000 Intake Total 120 120 Output Total 800 1350 Balance -680 -1230 Intake, Oral 120 120 Output, Urine 800 1350 Physical Exam Other Physical Findings: He appears comfortable in no acute distress Lungs are clear Heart irregular rhythm with no murmur Extremities no cyanosis, clubbing or edema Results Last 24 Hours of Lab Results: Laboratory Tests 05/08 817 Chemistry Sodium (137 - 145 mmol/L) 139 Potassium (3.5 - 5.1 mmol/L) 4.5 Chloride (98 - 107 mmol/L) 104 Carbon Dioxide (22 - 30 mmol/L) 26 Anion Gap (5 - 16) 9 BUN (9 - 20 mg/dL) 23 H Creatinine (0.7 - 1.2 mg/dL) 1.4 H Estimated GFR (>60 ml/min) 49 L BUN/Creatinine Ratio (7 - 25 %) 16.4 Last 24 Hours of Joey Results: Blood cultures May 05 negative Blood cultures May 07 negative Recent Imaging Studies: Chest x-ray May 07, personally reviewed, reveals no change in the right upper lobe density Assessment/Plan Impression: Improved with temperatures now normal and white blood cell count remaining normal on Levaquin Day 3 of treatment for right upper lobe pneumonia of unclear etiology. Suggestion: 1. Will need a follow-up chest x-ray or CT in several weeks or months as an outpatient 2. Continue Levaquin to complete a 7 day course of treatment
[2017-05-08 17:00] VITALS: BP 148/70
--- NOTE | 2017-05-08 22:24 | NUR ---
PT IS JUNCTIONAL ON MONITOR, INFORMED DR WYATT.
[2017-05-08 23:00] VITALS: BP 140/72
[2017-05-09 07:38] VITALS: BP 158/60
--- NOTE | 2017-05-09 10:28 | PN- Att Addend ---
Attending Addendum Attending Brief Note Patient seen and examined bedside. No new complaints, afebrile, vitals stable. PE unremerkable. ASSESSMENT AND PLAN 81 yr old male with pmh of cad s/p stents, edgardo on cpap, htn, dm, cva, pad s/p aortoiliac stent presented with fever of one day and gen weakness over the last few days. Pt had fever of 102 in ER and CXR and CT chest consistent with pneumonia. Will treat for CAP and acute renal failure - pt allergic to penicillin with severe reaction started on levofloxacin. Consulted pulmonary, oxygen supplementation as needed, afebrile in past 24 hrs, Cr stabilising, patient clinically improving. Appreciate ID and repeat chest xary with stable findings. Patient to complete course of levofloxacin 7 days. F/u O/p PCP in 1 week of d/c, pulmonary for possible clearance for pacemaker in June. patient can be dsicharged in stable condition, plan of care d/thu patient and he is in agreement. Pt also has h/o tachy migdalia syndrome and is planned for PPM placement on Jun [address] Cardenas.
[2017-05-09] MEDS ORDERED: CHLORTHALIDONE25 M1 PO (10:52)
[2017-05-09] MEDS ORDERED: GLIMEPIRIDE2 MG PO (10:53)
--- NOTE | 2017-05-09 12:43 | PN- Housestaff ---
Subjective Follow-up For: Pneumonia Tele-Events Since Last Visit: sinus migdalia, 1 st degree HB, 31-63, 0.24-0.28 Subjective: Patient states he feels a lot better but does not feel his legs are strong enough to go home. He states he feels he may be a fall risk. No acute events overnight. Nurse reports asymtomatic bradycardia in low 30s. Review of Systems Constitutional: Denies: no symptoms. Objective Last 24 Hrs of Vital Signs/I&O Vital Signs Date Time Temp Pulse Resp B/P B/P Pulse O2 O2 Flow FiO2 Mean Ox Delivery Rate 05/09 09 Room Air 05/09 0738 97.9 50 18 158/60 96 Room Air 05/09 0000 96 BIPAP 05/08 2300 98.0 47 20 140/72 96 Room Air 05/08 1700 98.0 49 16 148/70 97 Room Air Intake & Output 05/09 1600 05/09 0800 08 0000 Intake Total 400 600 Output Total 850 450 Balance -450 150 Intake, Oral 400 600 Output, Urine 850 450 Physical Exam General Appearance: Alert, Oriented X3, Cooperative, No Acute Distress HEENT: Atraumatic, PERRLA, EOMI, Mucous Membr. moist/pink Lungs: Clear to Auscultation, Normal Air Movement Extremities: No Clubbing, No Cyanosis, No Tenderness/Swelling Assessment/Plan Assessment: 81 y/o male with PMH of A-FIB, ME, CAD s/p 5 stents, aortioiliac stent, tachybradyarythmia scheduled for pacemaker June 04 2017, CVA, BINU on CPAP and HTN presents to ED with bilateral leg weakness and pneumonia. Patient states he had a near drown event in the pool while visiting his son. 1.Pneumonia with resolved fever, Tmax 97.9 * Continue Levofloxacin and monitor CR for nephrotoxicity * Blood and sputum cultures pending 2. Tachybradyarrythmia * Continue telemetry 3. BINU * Continue CPAP PRN 4. HTN * Continue home meds 5. NIDDM * SS 6. Bilateral leg weakness * Continue PT patient is stable for discharge today Problem List: 1. Pneumonia Pain Ratin Pain Location: n/a Pain Goal: Remain pain free Pain Plan: none Tomorrow's Labs & Rationales: n/a
== END 2017-05-09 12:55 | DRG 194 ==
LOC: ERH 15:00 → ERHI 16:32 → 1NO 16:32 → CANRESERV 17:11 → ENRESERV 17:11 → ENTRNSPT 17:38 → EDBEDREQ 17:58 → ENRESERV 18:02 → EDTRNSPT 18:46 → EDTRNSPTSTS 19:05 → 1NO 19:12 → CMPTRNSPT 19:16 → 1NO 05-07 09:43 → ENPENDDIS 05-09 12:00 → 1NO 05-09 12:55
PROVIDERS: Emergency Medicine; Hospitalist; Internal Medicine Infectious Disease; ADMIT Internal Medicine
DX: J18.9 Pneumonia, unspecified organism (principal); E87.1 Hypo-osmolality and hyponatremia; N17.9 Acute kidney failure, unspecified; I49.5 Sick sinus syndrome; D52.9 Folate deficiency anemia, unspecified; E66.01 Morbid (severe) obesity due to excess calories; Z68.37 Body mass index [BMI] 37.0-37.9, adult; G47.33 Obstructive sleep apnea (adult) (pediatric); I73.9 Peripheral vascular disease, unspecified; E11.9 Type 2 diabetes mellitus without complications; Z79.4 Long term (current) use of insulin; K21.9 Gastro-esophageal reflux disease without esophagitis; K44.9 Diaphragmatic hernia without obstruction or gangrene; J47.9 Bronchiectasis, uncomplicated; D35.00 Benign neoplasm of unspecified adrenal gland; I12.9 Hypertensive chronic kidney disease with stage 1 through stage 4 chronic kidney disease, or unspecified chronic kidney disease; N18.3 Chronic kidney disease, stage 3 (moderate); Z86.73 Personal history of transient ischemic attack (TIA), and cerebral infarction without residual deficits; I25.10 Atherosclerotic heart disease of native coronary artery without angina pectoris; Z95.5 Presence of coronary angioplasty implant and graft; Z66 Do not resuscitate; I25.2 Old myocardial infarction; G25.81 Restless legs syndrome; Z88.0 Allergy status to penicillin; W16.012A Fall into swimming pool striking water surface causing other injury, initial encounter
CPT/HCPCS: 1NP; 86618; 36415; 81001; 82436; 87040; 87070; 87449; 87450; 93005; 93010; 97110-GO; 97116-GO; 97161-GP; 97530-GO; J0131; J0461; J1644; J3490